=== PATIENT | male | born 1980 | race Caucasian/White ===

== ENCOUNTER 2021-07-05 13:49 | Emergency (ER) | payer MEDICAID, SELFPAY ==
[2021-07-05 13:50] VITALS: BP 196/103; PULSE 101; RESP 16; TEMP 36.4; O2SAT 98; BMI 46.0
--- NOTE | 2021-07-05 14:27 | EKG12_ITS ---
Test Reason : L ARM PAIN/HTN Blood Pressure : / mmHG Vent. Rate : 090 BPM Atrial Rate : 090 BPM P-R Int : 158 ms QRS Dur : 084 ms QT Int : 352 ms P-R-T Axes : 066 043 031 degrees QTc Int : 430 ms Normal sinus rhythm Normal ECG No previous ECGs available Confirmed by SONY PABON, KEITH ([id number]), purchase request editor LISSETT KUMAR ([id number]) on 07/10/2021 7:55:28 AM Referred By: CURT Confirmed By:KEITH CARDOZA MD
--- NOTE | 2021-07-05 15:52 | CT_ITS ---
STUDY: CT BRAIN WITHOUT CONTRAST REASON FOR EXAM: Male, 41 years old. Left arm numbness and weakness for 2 weeks RADIATION DOSAGE (If Supplied By Facility): CTDIvol = ( 44.99 ) mGy, DLP = ( 812.98 ) mGycm TECHNIQUE: Transaxial CT imaging of the brain was performed without administration of intravenous contrast material. Individualized dose optimization techniques were used for this CT. COMPARISON: No relevant priors. FINDINGS: Brain parenchyma is without focal lesions, mass effect, acute intracranial hemorrhage, extra parenchymal fluid collections, hydrocephalus or herniation. The skull is intact. CT/Brain/Head without Contrast IMPRESSION: 1. Normal CT brain. Electronically Signed: Shelbei Wagner MD at 17:04 EDT Tel , Service support ,
--- NOTE | 2021-07-05 15:52 | CT_ITS ---
STUDY: CTA HEAD AND NECK WITH CONTRAST REASON FOR EXAM: Male, 41 years old. left arm numbness x 2 weeks RADIATION DOSAGE (If Supplied By Facility): CTDIvol = ( 19.33 ) mGy, DLP = ( 915.74 ) mGycm TECHNIQUE: CT angiography was performed with a multi-detector CT scanner. Data acquisition was obtained from the skull base through the vertex following intravenous administration of IV 100mL Isovue-[id number]. MIP images were reconstructed from the axial data set. Post-processing of the angiographic images was performed, with multiplanar reformation and 3D reconstruction. Individualized dose optimization techniques were used for this CT. COMPARISON: No relevant priors. FINDINGS: Normal bilateral petrous carotid arteries. Normal right cavernous carotid artery with a normal supraclinoid bifurcation. Normal left cavernous carotid artery with a normal supraclinoid bifurcation. Normal right A1 segments of the anterior cerebral artery. Normal left A1 segments of the anterior cerebral artery. Normal intact anterior communicating artery (ACOM). Normal bilateral A2 segments of the anterior cerebral arteries. Normal right M1 and M2 segments of the middle cerebral arteries, with a normal M1 bifurcation. Normal left M1 and M2 segments of the middle cerebral arteries, with a normal M1 bifurcation. Posterior commuting arteries are large on the right, small on the left. Normal bilateral vertebral arteries. Normal basilar artery with a normal basilar bifurcation. The visualized bilateral superior cerebellar (SCA) arteries are normal. Normal bilateral P1, P2 and visualized P3 segments of the posterior cerebral arteries. There is no demonstrated aneurysm of the [employer]. There is no demonstrated abnormality of the visualized brain. AORTIC ARCH: Normal visualized aortic arch. Normal origins of the brachiocephalic, left common carotid, and left subclavian arteries. RIGHT CAROTID ARTERIES: Normal right common carotid artery (CCA). Normal right common carotid bulb. Normal origin of the right internal carotid (ICA) artery without a hemodynamically significant stenosis. Normal visualized cervical portion of the right internal carotid artery. Normal origin of the right external carotid artery (ECA). LEFT CAROTID ARTERIES: Normal left common carotid artery (CCA). Normal left common carotid bulb. Normal origin of the left internal carotid (ICA) artery without a hemodynamically significant stenosis. Normal visualized cervical portion of the left internal carotid artery. Normal origin of the left external carotid artery (ECA). VERTEBRAL ARTERIES: Normal bilateral vertebral arteries. CT/CTA Head AND Neck W/ Contrast IMPRESSION: Normal CTA Head and neck with contrast. Electronically Signed: Shelbie Wagner MD at 17:05 EDT Tel , Service support ,
--- NOTE | 2021-07-05 15:55 | EX.ED.DYSGE1 ---
HPI History of Present Illness Chief Complaint: Numb/Ting Informant: patient Narrative Narrative: Patient is a 41-year-old male with history of hypertension and diabetes mellitus, currently off medications, presenting with 2 weeks of intermittent numbness in his left arm. He notes it is mostly around his elbow and then goes over the top of his forearm and into his hand. Sometimes he does have pain from his neck going down his chest and under his axilla on the left side. Seems to be worse when he is working or moving his arm but sometimes does happen at rest as well. He states he feels it when he is driving. He denies any shortness of breath or difficulty breathing. He never had any like this before. He denies any recent injuries but notes right before this happened he did have a cough. He denies any chest pain currently. Denies any swelling of his legs. Denies any fever chills. Denies any nausea or vomiting. Denies any vision changes or any other paresthesias or weakness. His speech is normal. Patient came in today at the insistence of family members because her going out of town this coming week. [facility] Medical History (Updated 07/05/21 @ 17:[address] Jory Manrique, ) Hypertension Home Medications cyclobenzaprine 10 mg PO TID PRN #20 tab 07/05/21 [Rx Last Taken Unknown] hydrochlorothiazide 25 mg PO DAILY #30 tab 07/05/21 [Rx Last Taken Unknown] metformin 500 mg PO BID #60 tab 07/05/21 [Rx Last Taken Unknown] Allergy/AdvReac Type Severity Reaction Status Date / Time No Known Allergies Allergy Verified 07/05/21 13:50 Social History Smoking Status: Never smoker [facility] ED Constitutional Constitutional ED: Denies chills or fever(s) Eyes Eyes: Denies blurry vision or change in vision ENT ENT ED: Denies ear pain or rhinorrhea Cardiovascular Cardiovascular: Reports chest pain; Denies palpitations Respiratory/Chest Respiratory/Chest: Denies cough or dyspnea Gastrointestinal Gastrointestinal: Denies abdominal pain, nausea or vomiting Genitourinary Genitourinary ED: Denies dysuria Musculoskeletal Musculoskeletal: Reports neck pain Integumentary Denies rash Neurologic Neurologic: Reports paresthesias LUE; Denies headache(s) or weakness Psychiatric Psychiatric: Denies anxiety or depression EXAM Physical Exam Const Vital Signs: 07/05/21 13:50 07/05/21 16:14 07/05/21 18:05 Temperature 97.5 F L Temperature Source Temporal Pulse Rate 101 H 88 87 Respiratory Rate 16 16 16 Blood Pressure 196/103 H 172/107 H 151/78 H Blood Pressure Mean 134 128 Pulse Ox 98 97 99 Oxygen Delivery Method Room Air Room Air Positive well nourished and well developed General Appearance ED: well developed HEENT Reports TM's clear and moist mucous membranes Negative for tenderness Tympanic Membrane ED: Yes TM's clear Eyes PERRL and EOMs intact bilaterally Neck no lymphadenopathy and supple Chest Wall inspection of chest normal Resp normal respiratory effort and clear to auscultation bilaterally Cardio regular rate, regular rhythm and no murmurs GI normal to inspection, nondistended, normoactive bowel sounds Extremity normal to inspection Extremity Narrative: No obvious deformity. Normal range of motion of the left upper extremity diffusely. I am not able to reproduce the symptoms with Spurling's maneuver or palpation of the elbow/range of motion. General Extremety ED: Negative for edema or tenderness General Extremity: Negative for edema Neuro oriented x3, CN's II-XII intact bilaterally and no sensory deficits noted Sensorium / Orientation: alert Motor Exam: strength 5/5 throughout; Negative for general weakness Psych mental status grossly normal Skin no rashes or lesions noted and no wounds MDM MDM MDM Narrative Medical decision making narrative: Patient is evaluated for about 2 weeks of intermittent left arm numbness and tingling. He also has had some intermittent pain in his elbow. Denies any other symptoms. Patient is hypertensive in the emergency room. Concern is that this could be atypical cardiac pain or a central neurologic process. Patient does have multiple risk factors including weight, diabetes and hypertension. He is currently off all of his maintenance medications as he is not been following regularly with his PCP. Work-up including head CT, CTA of the head and neck, CBC, troponin and CMP are largely normal. I am not able to reproduce the symptoms on exam however I do suspect that they are peripheral in nature or muscle skeletal. Patient will be restarted on his hydrochlorothiazide and Metformin in the emergency room. He is encouraged on the importance of following up with his primary care doctor. He is also started on Flexeril to see if this helps with his neck and arm pain. Patient is counseled on signs and symptoms requiring return to the emergency room. Patient verbalizes agreement and understand this plan. Patient discharged home in stable and improved condition. Lab Data Labs: Laboratory Results - last 24 hr 07/05/21 07/05/21 07/05/21 16:10 16:10 16:10 WBC 6.3 RBC 5.14 Hgb 16.3 Hct 46.5 MCV 90.5 MCH 31.7 MCHC 35.1 RDW Std Deviation 40.1 RDW Coeff of Blake 12.2 Plt Count 214 MPV 10.6 Immature Gran % (Auto) 0.500 Neut % (Auto) 58.9 Lymph % (Auto) 29.5 Whiteside % (Auto) 8.0 Eos % (Auto) 2.1 Baso % (Auto) 1.0 Absolute Neuts (auto) 3.7 Absolute Lymphs (auto) 1.85 Nucleated RBC % 0 PT 12.7 INR 1.0 Sodium 140 Potassium 4.0 Chloride 106 Carbon Dioxide 29.0 Anion Gap 5 BUN 15 Creatinine 0.94 Estim Creat Clear Calc 94.27 Est GFR (MDRD) Af Amer 114 Est GFR (MDRD) Non-Af 94 BUN/Creatinine Ratio 15.9 Glucose 235 H Calcium 9.2 Troponin I High Sens 5 Radiography Chest X-Ray - ED: 1 View, Read by ED Physician, Read by Radiologist and No Acute Disease Diagnostic Testing: Clinical Impression(s) from Imaging Studies Brain CT 07/05/21 15:52 IMPRESSION: 1. Normal CT brain. Electronically Signed: Shelbie Wagner MD at 17:04 EDT Tel , Service support , Head/Neck CTA 07/05/21 15:52 IMPRESSION: Normal CTA Head and neck with contrast. Electronically Signed: Shelbie Wagner MD at 17:05 EDT Tel , Service support , Chest X-Ray 07/05/21 16:21 IMPRESSION: Normal x-ray examination of the chest. Electronically Signed: Shelbie Wagner MD at 17:03 EDT Tel , Service support , Rhythm Strip Rhythm Strip: Sinus Rhythm Rate: 90 Ectopy: None EKG Initial EKG: Attestation: I personally reviewed and interpreted this EKG as follows: Interpretation: Sinus Rhythm Comments: Normal sinus rhythm at a rate of 90 Normal axis Normal intervals Normal ST segments Nonspecific T wave inversion in lead III, possibly normal variant Discharge Plan Triage Chief Complaint: Numb/Ting ED Provider: Jory Manrique Dx/Rx/DC Orders Clinical Impression: Arm paresthesia, left, Neck pain on left side, Hypertension associated with diabetes Instructions: ED Diabetes- Overview, ED Hypertension, Established, ED Neck Pain, ED Neuropathy, Peripheral Prescriptions: New hydrochlorothiazide 25 mg tablet 25 mg PO DAILY Qty: 30 RF: 0 metformin 500 mg tablet 500 mg PO BID Qty: 60 RF: 0 cyclobenzaprine 10 mg tablet 10 mg PO TID PRN (Reason: muscle spasm) Qty: 20 RF: 0 Other Ambulatory Orders: Glucometer (Routine) Location: None Selected Ordered By: Dr. Jory Manrique Primary Care Provider: Juancho Tarango Referrals: Juancho Tarango MD [Primary Care Provider] - Delio Vigil MD [STAFF PHYSICIAN] - Disposition Disposition: Home, Self Care Discharge Date/Time: 07/05/21 18:07
[2021-07-05 16:14] VITALS: BP 172/107; PULSE 88; RESP 16; O2SAT 97
[2021-07-05 16:18] LABS: Absolute Lymphocyte Count 1.85 X10^3/uL (0.83-4.51); Absolute Neutrophil Count 3.7 X10^3/uL (2.0-7.7); Basophil# 0.06 X10^3/uL; Eosinophil# 0.13 X10^3/uL; Eosinophils% 2.1 % (0-5); Hematocrit 46.5 % (40-54); Hemoglobin 16.3 g/dL (13.0-16.5); Lymphocyte # 1.85 X10^3/ul (0.83-4.51); Lymphocyte % 29.5 % (19-41); Mean Corp Hgb Conc 35.1 g/dL (32-36); Mean Corpuscular Hgb 31.7 pg (27.0-32.0); Mean Corpuscular Volume 90.5 fL (80-94); Mean Platelet Vol. 10.6 fl (6.2-12.0); NRBC Flagged by Analyzer 0 % (0-5); Neutrophil % 58.9 % (47-70); Platelet Count 214 K/mm3 (150-450); RBC Distribution Width CV 12.2 % (11.6-14.6); RBC Distribution Width SD 40.1 fl (35.1-43.9); Red Blood Count 5.14 M/mm3 (4.6-6.2); White Blood Count 6.3 K/mm3 (4.4-11.0)
--- NOTE | 2021-07-05 16:21 | RAD_ITS ---
STUDY: X-RAY CHEST REASON FOR EXAM: Male, 41 years old. chest pain TECHNIQUE: Frontal portable view of the chest COMPARISON: None. FINDINGS: The lungs are clear and expanded. There is no demonstrated pleural abnormality. Normal size heart. Normal mediastinum and pavel. Normal visualized pulmonary arteries. Normal visualized aortic arch and descending thoracic aorta. Normal visualized thoracic spine. Normal visualized ribs, clavicles, and shoulders. There is no demonstrated abnormality of the visualized soft tissue structures of the upper abdomen. RAD/Chest 1 View (Portable) IMPRESSION: Normal x-ray examination of the chest. Electronically Signed: Shelbie Wagner MD at 17:03 EDT Tel , Service support ,
[2021-07-05 16:28] LABS: Prothrombin Time (Protime)PT. 12.7 SECONDS (11.7-14.9)
[2021-07-05 16:37] LABS: Anion Gap 5 (5-15); BUN 15 mg/dL (7-18); BUN/Creat Ratio 15.9 RATIO (10-20); Calcium,Total 9.2 mg/dL (8.5-10.1); Chloride 106 mmol/L (98-107); Creatinine, Serum 0.94 mg/dL (0.70-1.30); EST Glomerular Filtration Rate 94 mL/min (>60); Est Glom Filt Rate - Afr Amer 114 mL/min (>60); Estimated Creatinine Clearance 94.27 ml/min; Glucose 235 mg/dL (74-106); Sodium Level 140 mmol/L (136-145); Troponin-I HS 5 pg/mL (3.0-78.0)
[2021-07-05 18:05] VITALS: BP 151/78; PULSE 87; RESP 16; O2SAT 99
== END 2021-07-05 18:07 | disposition home or self-care (01) ==
PROVIDERS: Emergency Provider Emergency Medicine; PCP Family Medicine
DX: R20.2 Paresthesia of skin (principal); E11.59 Type 2 diabetes mellitus with other circulatory complications; E11.69 Type 2 diabetes mellitus with other specified complication; I10 Essential (primary) hypertension; Z79.84 Long term (current) use of oral hypoglycemic drugs
CPT/HCPCS: 70450; 70496; 70498; 71045; 80048; 84484; 85025; 85610; 93005; 99284; Q9967; A4216

== ENCOUNTER → 2023-12-14 | Outpatient (CLI) | payer MEDICAID, SELFPAY ==
[2023-12-14 15:21] LABS: Absolute Lymphocyte Count 1.56 X10^3/uL (0.83-4.51); Absolute Neutrophil Count 2.5 X10^3/uL (2.0-7.7); Basophil# 0.04 X10^3/uL; Basophil% 0.9 % (0-1); Eosinophil# 0.09 X10^3/uL; Eosinophils% 1.9 % (0-5); Hematocrit 42.3 % (40-54); Hemoglobin 14.3 g/dL (13.0-16.5); Lymphocyte # 1.56 X10^3/ul (0.83-4.51); Lymphocyte % 33.8 % (19-41); Mean Corp Hgb Conc 33.8 g/dL (32-36); Mean Corpuscular Hgb 30.7 pg (27.0-32.0); Mean Corpuscular Volume 90.8 fL (80-94); Mean Platelet Vol. 10.8 fl (6.2-12.0); Monocyte# 0.43 X10^3/uL; Monocyte% 9.3 % (0-10); NRBC Flagged by Analyzer 0 % (0-5); Neutrophil # 2.48 X10^3/uL (2.7-7.7); Neutrophil % 53.7 % (47-70); Platelet Count 199 K/mm3 (150-450); RBC Distribution Width CV 13.7 % (11.6-14.6); RBC Distribution Width SD 44.1 fl (35.1-43.9); Red Blood Count 4.66 M/mm3 (4.6-6.2); White Blood Count 4.6 K/mm3 (4.4-11.0)
[2023-12-14 15:46] LABS: Microalbumin,Random Urine 11.8 mg/L (NO RANGE EST.); Microalbumin:Creatinine Ratio 7.6 mg/g CRE (<30 mg/g CRE)
[2023-12-14 16:01] LABS: Hemoglobin A1c 7.7 % (3.8-5.6)
[2023-12-14 16:36] LABS: ALB/GLOB Ratio 1.1 RATIO (0.9-2.4); AST(SGOT) 24 U/L (15-37); Alanine Aminotransfer ALT/SGPT 25 U/L (16-61); Albumin, Serum 3.6 g/dL (3.2-5.0); Alkaline Phosphatase 57 U/L (45-117); Anion Gap 6 (5-15); BUN 13 mg/dL (7-18); BUN/Creat Ratio 17.4 RATIO (10-20); Calcium,Total 9.2 mg/dL (8.5-10.1); Chloride 108 mmol/L (98-107); Cholesterol 161 mg/dL (200); Creatinine, Serum 0.75 mg/dL (0.70-1.30); EST Glomerular Filtration Rate 122 mL/min (>60); Est Glom Filt Rate - Afr Amer 147 mL/min (>60); Globulin 3.4 g/dL (2.2-4.2); Glucose 77 mg/dL (74-106); High Density Lipoprotein 48 mg/dL; Magnesium 1.9 mg/dL (1.6-2.6); Potassium 3.6 mmol/L (3.5-5.1); Sodium Level 140 mmol/L (136-145); Thyroid Stim Hormone (TSH) 1.71 uIU/mL (0.358-3.74); Triglycerides 53 mg/dL; Very Low Density Lipoprotein 11 mg/dL (5-40)
== END | disposition home or self-care (01) ==
LOC: MTLAB 13:47
PROVIDERS: PCP Family Medicine; Referring Provider Family Medicine; Visit Provider Family Medicine
DX: Z00.00 Encounter for general adult medical examination without abnormal findings (principal); I48.91 Unspecified atrial fibrillation; E11.9 Type 2 diabetes mellitus without complications
CPT/HCPCS: 36415; 80053; 80061; 82043; 82570; 83036; 83735; 84443; 85025

== ENCOUNTER → 2024-02-10 | Outpatient (CLI) | payer MEDICAID, SELFPAY ==
[2024-02-10 16:08] LABS: Anion Gap 9 (5-15); BUN 14 mg/dL (7-18); BUN/Creat Ratio 14.2 RATIO (10-20); Calcium,Total 9.4 mg/dL (8.5-10.1); Chloride 111 mmol/L (98-107); Creatinine, Serum 0.98 mg/dL (0.70-1.30); EST Glomerular Filtration Rate 88 mL/min (>60); Est Glom Filt Rate - Afr Amer 107 mL/min (>60); Glucose 74 mg/dL (74-106); Potassium 3.4 mmol/L (3.5-5.1); Sodium Level 141 mmol/L (136-145)
== END | disposition home or self-care (01) ==
LOC: MTLAB 13:46
PROVIDERS: PCP Family Medicine; Referring Provider Internal Medicine Cardiovascular Disease; Visit Provider Internal Medicine Cardiovascular Disease
DX: I48.91 Unspecified atrial fibrillation (principal); I10 Essential (primary) hypertension
CPT/HCPCS: 36415; 80048

== ENCOUNTER → 2024-02-24 | Day surgery (SDC) | payer MEDICAID, SELFPAY ==
[2024-02-23 07:25] VITALS: BMI 42.9
--- NOTE | 2024-02-24 10:09 | ECHOTEE_ITS ---
Reason For Study: afib Medication MARY probe 6VT-D (SN [id number]) passed without difficulty. No complications were noted. Cetacaine Topical [place] given X3 orally. Versed 3 mg given slow IVP. Fentanyl 50 mcg given slow IVP. Performed a rapid injection of agitated mix of 9 cc saline and 1cc air to assess for atrial septal defect. Left Ventricle Normal LV size. Left ventricular systolic function is normal. The estimated ejection fraction is 55 %. No regional wall motion abnormalities noted. Right Ventricle Normal RV size. Normal systolic function. Atria Normal atrial septum. Bubble contrast study negative for right to left interatrial shunt. Normal left atrium. No thrombus is detected in the left atrial appendage. Normal right atrium. Mitral Valve Normal mitral valve. Tricuspid Valve Normal tricuspid valve. Mild tricuspid valve insufficiency. Aortic Valve Normal aortic valve. Trisinus/trileaflet aortic valve. Pulmonic Valve Normal pulmonic valve. Vessels Normal aortic root. Pericardium No pericardial effusion. ECHO/Echo Transesophageal (MARY) Interpretation Summary Normal LV size. Left ventricular systolic function is normal. The estimated ejection fraction is 55 %. Bubble contrast study negative for right to left interatrial shunt. No thrombus is detected in the left atrial appendage. Ordering Physician: Kenton Taylor Referring Physician: Kenton Taylor Performed By: Daly Martinez RCS
[2024-02-24 10:18] LABS: Potassium 4.6 mmol/L (3.5-5.1)
--- NOTE | 2024-02-24 13:06 | PCM.OP.PRO ---
Procedure Report Date of Procedure: 02/24/24 DC cardioversion. 43-year-old male with a history of atrial fibrillation symptomatic who underwent a MARY this morning which demonstrated no evidence of left atrial appendage thrombus. Patient was brought to cardiac catheterization lab in the postabsorptive nonsedated state. Informed consent was obtained. The patient was seen by Dr. Mario of the critical care division. Anterior-posterior pads were applied. The patient was administered 40 mg intravenous propofol. 200 J of synchronized DC cardioversion energy were applied which was unsuccessful in restoring sinus rhythm. 300 J of synchronized DC biphasic cardioversion energy were then applied with prompt reversal to sinus rhythm. Patient tolerated the procedure well. Conclusion: Successful MARY guided DC cardioversion. Follow-up as per office protocol.
--- NOTE | 2024-02-24 13:07 | PRO.PCM_ITS ---
Procedure Report Date of Procedure: 02/24/24 CONSCIOUS SEDATION REPORT DATE OF SERVICE: February 24, 2024 BRIEF HISTORY OF PRESENT ILLNESS: The patient is a 43-year-old male who presented to [facility] to undergo an elective cardioversion due to a history of atrial fibrillation. The patient did undergo a MARY earlier today, which revealed an ejection fraction of approximately 55%. The patient is systemically anticoagulated on Eliquis. He denies a history of COPD, asthma or obstructive sleep apnea. PHYSICAL EXAMINATION: VITAL SIGNS: Reviewed and were acceptable. GENERAL: The patient is a male, in no apparent distress, speaking in full sentences. HEENT: Normocephalic, atraumatic. Mucous membranes are moist and pink. Good mouth opening noted. Trachea is midline. Good neck mobility. CHEST: S1, S2 irregularly irregular. No murmurs, rubs or gallops were noted. LUNGS: Clear to auscultation bilaterally without appreciable wheezes, rales or rhonchi. ABDOMEN: Soft, nontender, nondistended. Positive bowel sounds. EXTREMITIES: There is no clubbing, cyanosis or edema. ASA Class: II DESCRIPTION OF PROCEDURE: After confirmation of informed consent, the patient's anesthesia plan was reviewed in detail. Propofol was chosen. Risks and benefits were reviewed and the patient agreed to proceed. At 1244, the patient was given 40 mg of propofol. The patient achieved an appropriate level of sedation and was given a 300 joule synchronized cardioversion by Dr. Taylor at the bedside. This was successful in achieving normal sinus rhythm. The patient was monitored until 1257, at which time he reached his baseline mental status and function. The patient tolerated the procedure well. COMPLICATIONS: None ESTIMATED BLOOD LOSS: None RECOMMENDATIONS: Okay to recover in usual fashion. Procedures Pulmonary [id number]: [id number] Con Sedation
== END | disposition home or self-care (01) ==
PROVIDERS: PCP Family Medicine; Referring Provider Internal Medicine Cardiovascular Disease; Visit Provider Internal Medicine Cardiovascular Disease
DX: I48.91 Unspecified atrial fibrillation (principal); E11.9 Type 2 diabetes mellitus without complications; I10 Essential (primary) hypertension
CPT/HCPCS: 36415; 84132; 92960; 93005; 93312; 93320; 93325; J7040; A4216